=== PATIENT | male | born 1945 | race Caucasian/White ===

== ENCOUNTER 2017-05-20 21:27 | Emergency (ER) | payer MEDICARE, MEDICAID ==
[~2017-05-20] VITALS: Ht 162.6 cm; Wt 54.4 kg
[~2017-05-20 21:27] MED LIST: ADVAIR 100-501 EACH INH; ADVAIRDISKUS; ARTIFICIAL TEA1 EACH OPHTHALMIC; ASPIRIN325 PO; CIPROFLOXACIN500 M1 PO; COREG3.125 MG PO; DUONEB 2.5-0.5 M3 ML INH; FLAGYL500 MG PO; LEVAQUIN 500 M500 M2 PO; LEVAQUIN 500 M500 M4 PO; LIPITOR10 MG PO; MIRALAX17 GM PO; NORCO 5-325 TA1 EACH PO; NORVASC5 MG PO; PREDNISONE 10 M10 MG PO; PRINIVIL20 M1 PO; PROTONIX40 M1 PO; PROVENTIL HFA6.7 G1 INH; PULMICORT0.5 MG/22 INH; SINGULAIR 10 MG10 M1 PO; TYLENOL325 MG PO
[2017-05-20] MEDS ORDERED: SINGULAIR 10 MG10 M1 (21:34)
[2017-05-20] MEDS ORDERED: HYDROCODONE-AP1 EAC6 (21:36)
[2017-05-20] MEDS ORDERED: OXYGEN (21:37)
[2017-05-20 22:12] LABS: ABSOLUTE BASOPHILS 0.1 thou/uL (0.0-0.2); ABSOLUTE EOSINOPHILS 0.7 thou/uL (0.0-0.7); ABSOLUTE LYMPHOCYTES 1.7 thou/uL (0.8-5.3); ABSOLUTE MONOCYTES 0.6 thou/uL (0.0-1.2); ABSOLUTE NEUTROPHILS 4.8 thou/uL (1.6-8.1); BASOPHILS 0.7 %; EOSINOPHILS 8.8 %; HEMOGLOBIN 15.3 gm/dL (14.0-18.0); LYMPHOCYTES 21.3 %; MCH 30.1 pg (26.0-34.0); MCHC 32.6 g/dL (28.0-37.0); MCV 92.4 fL (80.0-100.0); MONOCYTES 8.3 %; MPV 10.4 fl. (7.2-11.1); NUCLEATED RBCS 0 /100WBC; PLATELET COUNT* 172 thou/uL (150-400); POLYS 60.9 %; RBC 5.09 mil/uL (4.50-6.00); RDW-CV 13.7 % (10.5-14.5); WBC 7.8 thou/uL (4.0-11.0)
[2017-05-20 22:29] LABS: ANION GAP 7 mmol/L (7-16); BUN 20 mg/dL (7-18); CALCIUM 10.2 mg/dL (8.5-10.1); CHLORIDE 103 mmol/L (98-107); CO2 30 mmol/L (21-32); CREATININE 1.1 mg/dL (0.6-1.3); GLUCOSE 114 mg/dL (70-99); POTASSIUM 4.2 mmol/L (3.5-5.1); SODIUM 140 mmol/L (136-145)
[2017-05-20 22:39] LABS: ALBUMIN 3.9 g/dL (3.4-5.0); ALKALINE PHOSPHATASE 37 U/L (46-116); NT-PRO BRAIN NAT PEPTIDE 385 pg/mL (<300); SGOT 32 U/L (15-37); SGPT 31 U/L (30-65); TOTAL BILIRUBIN 0.6 mg/dL (<0.1-1.0); TOTAL PROTEIN 7.3 g/dL (6.4-8.2); TROPONIN-I LEVEL <0.06 ng/mL (<0.06)
[2017-05-20] MEDS ORDERED: HYDROCODON-ACE1 EAC5 PO (22:59)
[2017-05-21 00:06] VITALS: BP 159/70
--- NOTE | 2017-05-21 12:41 | EKG ---
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: RG Sterling : 1945 Requested By: Paige Mcleod Order Number: [id number] MD: Abebe Glover Measurements Intervals [employer] Rate: 102 P: 80 GA: 120 QRS: 71 QRSD: 90 T: 71 QT: 353 QTc: 460 Interpretive Statements Sinus tachycardia Probable left atrial enlargement RSR' in V1 or V2, right VCD or RVH Compared to ECG 07/14/2016 13:45:30 Right ventricular hypertrophy now present RSR' in V1 or V2 now present Prolonged QT interval no longer present Electronically Signed On 05-21-2017 12:41:42 CONVEYOR WEIGHER OPERATOR by Abebe Glover [email or web address] <ELECTRONICALLY SIGNED> By: Yordy Glover MD, [facility] 05/21/17 1241 [id number] Yordy Glover MD, [facility] /EPI
== END 2017-05-21 00:08 | disposition home or self-care (01) ==
LOC: M.ERS 21:27
PROVIDERS: Emergency Medicine
DX: J44.1 Chronic obstructive pulmonary disease with (acute) exacerbation (principal); J45.909 Unspecified asthma, uncomplicated; Z98.890 Other specified postprocedural states; Z87.891 Personal history of nicotine dependence

== ENCOUNTER 2018-01-31 11:22 | Inpatient (IN) | payer MEDICARE, MEDICAID ==
[~2018-01-31] VITALS: Ht 160 cm; Wt 51.7 kg
[~2018-01-31 11:22] MED LIST changes: +HYDROCODON-ACE1 EAC5 PO; +HYDROCODONE-AP1 EAC6; +OXYGEN; +SINGULAIR 10 MG10 M1
[2018-01-31] MEDS ORDERED: ANORO ELLIPTA1 EACH INH (11:33)
[2018-01-31 11:51] LABS: ABSOLUTE EOSINOPHILS 0.5 thou/uL (0.0-0.7); ABSOLUTE LYMPHOCYTES 1.4 thou/uL (0.8-5.3); ABSOLUTE MONOCYTES 0.6 thou/uL (0.0-1.2); ABSOLUTE NEUTROPHILS 5.1 thou/uL (1.6-8.1); BASOPHILS 0.6 %; EOSINOPHILS 6.7 %; HEMATOCRIT 46.1 % (42.0-52.0); HEMOGLOBIN 15.2 gm/dL (14.0-18.0); MCH 30.1 pg (26.0-34.0); MCHC 32.9 g/dL (28.0-37.0); MCV 91.4 fL (80.0-100.0); MONOCYTES 8.1 %; MPV 10.9 fl. (7.2-11.1); NUCLEATED RBCS 0 /100WBC; PLATELET COUNT* 203 thou/uL (150-400); POLYS 66.6 %; RBC 5.04 mil/uL (4.50-6.00); RDW-CV 13.8 % (10.5-14.5); WBC 7.7 thou/uL (4.0-11.0)
[2018-01-31 12:00] LABS: CALCIUM 9.7 mg/dL (8.5-10.1); CREATININE 1.3 mg/dL (0.6-1.3); POTASSIUM 3.9 mmol/L (3.5-5.1)
[2018-01-31 12:08] LABS: BE -3.2 mmol/L (-2 to +3); HCO3 22.3 mmol/L (22.0-26.0); PCO2 41.4 mmHg (35.0-45.0); PO2 70.2 mmHg (75.0-100.0); pH 7.349 (7.340-7.450)
[2018-01-31 12:11] LABS: ALBUMIN 4.2 g/dL (3.4-5.0); TOTAL BILIRUBIN 1.1 mg/dL (<0.1-1.0); TOTAL PROTEIN 8.1 g/dL (6.4-8.2)
[2018-01-31 12:13] LABS: APTT 29.2 Seconds (25.0-31.3); PROTIME 10.7 Seconds (9.20-11.50); TROPONIN-I LEVEL 0.62 ng/mL (<0.06)
[2018-01-31 13:30] VITALS: BP 119/65
[2018-01-31 13:45] VITALS: BP 111/57
--- NOTE | 2018-01-31 13:46 | NUR ---
PT TO ROOM FROM ER, APPEARSALERT O X 4, DENIES CHEST PAIN, DENIES SOB AT REST, ON 02 AT 3L PER NC , USES O2 AT HOME AT 3L , MOIST COUGH, DENIES PAIN
[2018-01-31 14:00] VITALS: BP 145/76
--- NOTE | 2018-01-31 17:02 | EKG ---
[place] [address] ELECTROCARDIOGRAM REPORT Name: ORTIZ STAPLES Room: [address] ADM IN .R.#: [id number] Admission: 01/31/18 Attend Phys: Cresencio Barbosa Discharge: Date of : 41 Report #: [id number] THIS REPORT FOR: //name// [facility] ED Test Date: 2018-01-31 Test Time: 11:34:02 Pat Name: ORTIZ STAPLES Department: Room: [facility] Gender: M Glass Bender: : 1945 Requested By: Yasmine Jolly Order Number: [id number] MD: Farrukh Loaiza Measurements Intervals [place] Rate: 99 P: 86 [place]: 120 QRS: 51 QRSD: 89 T: 83 QT: 348 QTc: 447 Interpretive Statements Sinus rhythm artifact noted Compared to ECG 05/20/2017 21:36:30 Sinus tachycardia no longer present Electronically Signed On 01-31-2018 17:02:17 CDT by Farrukh Loaiza [email or web address] <ELECTRONICALLY SIGNED> By: Farrukh Loaiza MD, [facility] 01/31/18 1702 1134 113 Farrukh Loaiza MD, FACC /EPI
[2018-01-31 19:30] VITALS: BP 122/70
[2018-02-01 00:29] VITALS: BP 138/80
[2018-02-01 04:00] VITALS: BP 150/58
--- NOTE | 2018-02-01 04:02 | NUR ---
RECEIVED REPORT AND ASSUMED CARE AT 1900.VSS. CARDIAC MONITORING IN PLACE. PT DENIES ANY COMPLAINTS OF PAIN. ASSESSMENT COMPLETED CHARTED. DISCUSSED PLAN OF CARE WITH PT, VERBALZED UNDERSTANDING. PT UPAD ADAM, ON 3L NC. BED LOCKED IN LOWEST POSITION, CALL LIGHT WITHIN REACH. WILL CONTINUE TO MONITOR
[2018-02-01 04:50] LABS: URINE BILIRUBIN NEGATIVE (Negative); URINE BLOOD NEGATIVE (Negative); URINE CLARITY CLEAR; URINE COLOR YELLOW; URINE GLUCOSE-RANDOM NEGATIVE (Negative); URINE KETONES 1+ (Negative); URINE LEUKOCYTES-REFLEX NEGATIVE (Negative); URINE NITRITE-REFLEX NEGATIVE (Negative); URINE PROTEIN NEGATIVE (Negative); URINE UROBILINOGEN 0.2 E.U./dl (0.2-1.0)
--- NOTE | 2018-02-01 07:20 | NUR ---
BEDSIDE, CHANGE OF SHIFT REPORT GIVEN PATIENT SEEN IN BED ASLEEP ASSUMED PATIENT CARE
[2018-02-01 08:00] VITALS: BP 144/57
[2018-02-01 12:00] VITALS: BP 127/68
--- NOTE | 2018-02-01 12:39 | NUR ---
Pt is A&O. Resides at home with a roommate. Pt is independent with ADLs, able to cook and clean. Pt uses either [employer] bus or his roommate for transportation. Pt also has a strong family support sx. Hx of skilled at [facility]. No hx of HH. Pt wears home o2, provided by [facility]. Pt's goal is to return home at dc, and has dc transportation. If Pt needs a portable tank at ms, CM will contact [facility] to have a tank delivered to Pt's room. [facility]:[phone]
[2018-02-01 16:00] VITALS: BP 141/73
--- NOTE | 2018-02-01 17:15 | 2DMMODE ---
[place] [address] 2 D/M-MODE ECHOCARDIOGRAM Name: ORTIZ STAPLES Room: [address] IN [facility]#: [id number] Admission: 01/31/18 Attend Phys: Norma Pierce Discharge: Date of : 41 Date of Service: 02/01/18 1715 Report #: [id number] THIS REPORT FOR: //name// APPROVED REPORT Study performed: 02/01/2018 14:23:46 EXAM: Comprehensive 2D, Doppler, and color-flow Echocardiogram Patient Location: In-Patient Room #: [facility] Status: routine BSA: 1.68 HR: 82 bpm BP: 144/57 mmHg Rhythm: NSR Other Information Study Quality: Good Indications COPD Elevated Troponin 2D Dimensions IVSd: 9.20 (7-11mm) LVOT Diam: 19.33 (18-24mm) LVDd: 44.03 mm PWd: 9.20 (7-11mm) LVDs: 32.57 (25-40mm) Aortic Root: 27.91 mm Volumes Left Atrial Volume (Systole) LA ESV Index: 21.70 mL/m2 Aortic Valve AoV Peak Semaj.: 1.10 m/s AO Peak Gr.: 4.84 mmHg LVOT Max P.81 mmHg AO Mean Gr.: 2.40 mmHg LVOT Mean P.71 mmHg LVOT Max V: 0.98 m/s AO V2 VTI: 19.38 cm LVOT Mean V: 0.60 m/s CRUZ (VTI): 2.67 cm2 LVOT V1 VTI: 17.61 cm Mitral Valve E/A Ratio: 0.73 MV Decel. Time: 269.35 [place] [address] 2 D/M-MODE ECHOCARDIOGRAM Name: ORTIZ STAPLES Room: [address] IN .R.#: [id number] Admission: 01/31/18 Attend Phys: Norma Pierce Discharge: Date of : 41 Date of Service: 02/01/18 1715 Report #: [id number] MV E Max Semaj.: 0.55 m/s MV PHT: 78.11 ms MVA (PHT): 2.82 cm2 TDI E/Lateral E': 6.11 E/Medial E': 9.17 Medial E' Semaj.: 0.06 m/s Lateral E' Semaj.: 0.09 m/s Pulmonary Valve PV Peak Semaj.: 0.86 m/s PV Peak Gr.: 2.98 mmHg Tricuspid Valve RAP Estimate: 5.00 mmHg TR Peak Gr.: 31.61 mmHg RVSP: 36.00 mmHg PA Pressure: 36.00 mmHg Left Ventricle The left ventricle is normal size. Regional wall motion abnormalities are noted.inferolateral wall is moderately hypokinetic. There is normal left ventricular wall thickness. Left ventricular systolic function is normal. The left ventricular ejection fraction is within the normal range. LVEF is 50%. Grade I - abnormal relaxation pattern. Right Ventricle The right ventricle is normal size. The right ventricular systolic function is normal. Atria The left atrium size is normal. The right atrium size is normal. Aortic Valve The aortic valve is normal in structure. No aortic regurgitation is present. There is no aortic valvular stenosis. Mitral Valve The mitral valve is normal in structure. There is no mitral valve regurgitation noted. No evidence of mitral valve stenosis. Tricuspid Valve The tricuspid valve is normal in structure. Trace tricuspid regurgitation. Mild pulmonary hypertension[place] [address] 2 D/M-MODE ECHOCARDIOGRAM Name: ORTIZ STAPLES Room: [address]#: [id number] Admission: 01/31/18 Attend Phys: Norma Pierce Discharge: Date of : 41 Date of Service: 02/01/18 1715 Report #: [id number] The pulmonary valve is normal in structure. There is no pulmonic valvular regurgitation. Great Vessels The aortic root is normal in size. IVC is normal in size and collapses >50% with inspiration. Pericardium There is no pericardial effusion. <Conclusion> LVEF is 50%. Regional wall motion abnormalities are noted.inferolateral wall is moderately hypokinetic. Grade I - abnormal relaxation pattern. There is no aortic valvular stenosis. No aortic regurgitation is present. Trace tricuspid regurgitation. Mild pulmonary hypertension. There is no mitral valve regurgitation noted. No evidence of mitral valve stenosis. No evidence of mitral valve stenosis. <ELECTRONICALLY SIGNED> By: Samuel Morris MD, FACC 02/01/181714 14 14 Samuel Morris MD, FACC /INF
[2018-02-02] VITALS: BP 126/61
[2018-02-02 04:00] VITALS: BP 144/58
--- NOTE | 2018-02-02 05:14 | NUR ---
ASSUMED CARE OF PT AT 1930. NEWS REEL CAMERAMAN IN PLACE. NO COMPLAINTS OF PAIN. DISCUSSED PLAN OF CARE FOR THE EVENING. PT VERBALIZED UNDERSTANDING. UP AD ADAM/ ON NC 3L AND TOLERATING WELL. BED LOCKED IN LOWEST POSITION AN CALL LIGHT WITHING REACH. HOURLY ROUNDING COMPLETED. ALL NEEDS MET. NURSING WILL CONTINUE TO MONITOR.
--- NOTE | 2018-02-02 07:30 | NUR ---
CHANGE OF SHIFT, BEDSIDE REPORT GIVEN PATIENT SEEN IN BED ASLEEP ASSUMED Patient care
[2018-02-02 08:00] VITALS: BP 123/57
[2018-02-02 11:33] VITALS: BP 118/48
--- NOTE | 2018-02-02 12:46 | CON ---
[address] [address] CONSULTATION Name: ORTIZ STAPLES Room: [address] IN M.R.#: [id number] Admission: 01/31/18 Attend Phys: Cresencio Barbosa Discharge: Date of : 41 Report #: [id number] THIS REPORT FOR: //name// CC: Norma Martin DATE OF SERVICE: 02/01/2018 REQUESTING PHYSICIAN: Dr. Pierce. REASON FOR CONSULTATION: Shortness of breath, COPD exacerbation. DISCUSSION: The patient is a 72-year-old man who has a history of COPD, presumed to be severe. I do not have any spirometry or PFTs on him. He is a former smoker. He states he quit about 10 years ago. He does not see a maintenance custodian in the office. He has O2, though has not been steroid dependent. He has required intubation in the past for his COPD. By about 4 or 5 days ago, he began having more trouble with his breathing. He does believe it may have been related to a pot becoming too hot with some oil burning at home. He had fairly strong fumes and some smoke in the house. Typically, he has a cough with clear to white sputum. It has become darker. However, he denies any fevers at home. He has felt much more short of breath. He has also had some chest tightness. He denies any actual chest pain. Denies any hemoptysis. Normally at home, he does do Anoro daily (however, he admits some days he forgets), nebulizer with DuoNeb he does up to 4 times a day, montelukast 10 mg a day and he has albuterol inhaler. His regular regimen was not helping. He was seen in the ED yesterday. He was bronchospastic. He did not have any significant hypercapnia on his blood gases. His troponins have elevated. He has already been seen by Cardiology. They have recommended a cardiac catheterization, but he has declined. He has been afebrile. He notes overall his breathing is better today relative to what it was. However, he still gets fairly winded when he walks to the bathroom. He still has some of the chest tightness. Denies any palpitations. He has not had any associated palpitations. PAST MEDICAL HISTORY: Remarkable for the COPD as noted. Has been O2 dependent. He is not on any type of BiPAP or Trilogy at home. He has a history of hepatitis C. HOME MEDICATIONS: Have been the Anoro as noted, DuoNeb, montelukast, aspirin 31/10. He also notes he intermittently uses some [place]uss[place] [address] CONSULTATION Name: ORTIZ STAPLES Room: [address] ADM IN .R.#: [id number] Admission: 01/31/18 Attend Phys: Cresencio Barbosa Discharge: Date of : 41 Report #: [id number] to him by Dr. Martin. He has had no recent steroids. SOCIAL HISTORY: Former smoker, states he quit 10 years ago. 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 May have had asbestos exposure years ago. REVIEW OF SYSTEMS: A 12-point ROS was done. Note positives above. He notes he has had a good appetite. No difficulty swallowing. No reflux type symptoms. No hematemesis, no blood in the stools. Denies any hemoptysis. He will get short of breath with exertion. He notes he wheezes on a daily basis. However, the symptoms he has had over the last 4-5 days has been much worse. The sputum has darkened up. No syncopal episodes. PHYSICAL EXAMINATION: GENERAL APPEARANCE: A male, looks his stated age, if not older. Has O2 running via nasal cannula. Looks fairly comfortable in bed. HEENT: Head is normocephalic and atraumatic. Sclerae nonicteric. Mucous membranes little dry. NECK: Negative for adenopathy. Neck muscles well developed. No JVD is noted. HEART: Regular rate. Had grade 1/6 systolic murmur. LUNGS: Show breath sounds to be diminished with a prolonged expiratory phase. Inspiratory and expiratory wheezes heard bilaterally. Excursion is equal. No CVA tenderness. ABDOMEN: Soft, without appreciable hepatosplenomegaly. There is no guarding or rebound tenderness noted. EXTREMITIES: Thin, some muscle wasting. No edema is noted. No calf tenderness. NEUROLOGIC: He is alert and oriented x 3. LABORATORY AND X-RAY FINDINGS: Arterial blood gases done yesterday. He had a pH of 7.35, pCO2 of 41, pO2 of 70, bicarb of 22 with a saturation of 93%. On his chemistry, BUN is 12, creatinine 1.3, potassium is 3.9. Lactic acid 1.6. Peak troponin last night was up to 1.05. White blood cell count 7700, hemoglobin 15.2, hematocrit 46.1, platelets are normal. Coag studies were unremarkable. A chest x-ray was done. It was a portable study done. In the ED, no acute findings were noted. Does have changes consistent with COPD in the form of air trapping. He did have an echocardiogram in 2017 when he was here with respiratory failure on a ventilator. Echo done at that time did reveal EF of only 35-40%. He also had grade 1 diastolic dysfunction. RV was normal. No significant valvular disease. IMPRESSION: 1. Chronic obstructive pulmonary disease exacerbation. He is actively bronchospastic on exam. May have been triggered by some of the fumes at home from oil getting [place] [address] CONSULTATION Name: ORTIZ STAPLES Room: [address] IN [facility].#: [id number] Admission: 01/31/18 Attend Phys: Cresencio Barbosa Discharge: Date of : 41 Report #: [id number] 2. Non-ST elevation myocardial infarction. The patient, however, is having significant denial and the possibility he could have a heart issue. He is emphatic that "my heart is fine. It is a strong heart after my grandmother's heart." 3. Past history of tobacco abuse. RECOMMENDATIONS: 1. Change DuoNeb to every 4 hours. 2. Also add Brovana since he is on a long-acting bronchodilator at home. 3. Check sputum for cultures. 4. Continue steroids. 5. Note he is currently on 2 anticholinergics at home. There is really no indication for that and could increase side effects related to that. When discharged, suggest changing his DuoNeb to straight albuterol. 6. Did recommend that he be more open to discussing his cardiac status with the manager convention. <ELECTRONICALLY SIGNED> By: Autumn Myers MD 02/02/18 1246 1017 [id number] Myers MD /nt
[2018-02-02 15:34] VITALS: BP 117/57
[2018-02-02 19:45] VITALS: BP 127/42
[2018-02-03 00:36] VITALS: BP 154/65
[2018-02-03 04:23] VITALS: BP 142/61
--- NOTE | 2018-02-03 04:46 | NUR ---
PT AAOX4 RESP REG AND UNLABORED SKIN W/D NO ACUTE DISTRESS NOTED. PT STATES HE IS SUPPOSE TO GO HOME TODAY AND HE IS READY. TAXICAB STARTER INTACT WITH ALARMS SET. O2 3L BNC INTACT. VSS AND NO ACUTE CHANGES DURING SHIFT WILL CONTINUE TO MONITOR
[2018-02-03 05:15] LABS: HEMATOCRIT 45.1 % (42.0-52.0); HEMOGLOBIN 14.8 gm/dL (14.0-18.0); MCHC 32.8 g/dL (28.0-37.0); MCV 91.5 fL (80.0-100.0); MPV 11.8 fl. (7.2-11.1); NUCLEATED RBCS 0 /100WBC; PLATELET COUNT* 154 thou/uL (150-400); RBC 4.93 mil/uL (4.50-6.00); WBC 8.9 thou/uL (4.0-11.0)
[2018-02-03 05:16] LABS: CALCIUM 9.1 mg/dL (8.5-10.1); POTASSIUM 5.3 mmol/L (3.5-5.1)
[2018-02-03 06:09] LABS: ABSOLUTE LYMPHOCYTES 0.3 thou/uL (0.8-5.3); ABSOLUTE MONOCYTES 0.2 thou/uL (0.0-1.2); ABSOLUTE NEUTROPHILS 8.5 thou/uL (1.6-8.1)
[2018-02-03 06:10] LABS: PLATELET ESTIMATE ADEQUATE
[2018-02-03 08:00] VITALS: BP 130/58
--- NOTE | 2018-02-03 08:00 | NUR ---
ASSUMED CARE OF PT ASSESSED AND DOCUMENTED. PT IS ON THE CARDIAC MONITER TRACING SB HR 58. PT IS A&O WITH NO C/O PAIN. PT IS ON 3L OF 02. BED IS IN LOW POSTION CALL LIGHT IS IN REACH. WM.
--- NOTE | 2018-02-03 11:23 | NUR ---
DISCUSSED WITH DR TOM, ORDERS FOR DC HOME WITH HH. MET WITH PT, HE DECLINES HH. STATES 'I'LL BE FINE AT HOME.' HAS O2 AND WILL ARRANGE HIS OWN RIDE HOME. MADE AWARE
[2018-02-03] MEDS ORDERED: TOPROL XL50 MG PO (11:25)
[2018-02-03] MEDS ORDERED: PLAVIX 75 MG TA75 M1 PO (11:25)
[2018-02-03] MEDS ORDERED: ASPIR 8181 MG PO (11:25)
[2018-02-03] MEDS ORDERED: LEVAQUIN 750 M750 MG PO (11:26)
[2018-02-03] MEDS ORDERED: PREDNISONE 10 M10 MG PO (11:27)
[2018-02-03] MEDS ORDERED: LIPITOR 20 MG T20 M1 PO (11:35)
[2018-02-03 11:49] VITALS: BP 130/58
[2018-02-03 12:23] VITALS: BP 137/49
--- NOTE | 2018-02-03 13:52 | NUR ---
PT D/C'D TO HOME. HE REFUSES HOME HEALTH. EDUCATION GIVEN RE FOLLOW-UPS, MEDICATIONS, AND DR ORDERS. IV AND CARDIAC MONITER D/C'D. SCRIPTS GIVEN. ALL BELONGINGS PACKED UP AND LEFT WITH PT ACCOMPANIED BY STAFF.
--- NOTE | 2018-02-05 09:11 | CON ---
[address] [address] CONSULTATION Name: FISH STAPLES Room: [address] IN .R.#: [id number] Admission: 01/31/18 Attend Phys: Cresencio Barbosa Discharge: 02/03/18 Date of : 41 Report #: [id number] THIS REPORT FOR: //name// CC: Norma Martin DATE OF SERVICE: 02/01/2018 PRIMARY CARE PHYSICIAN: Joseph Martin DO. REQUESTING PHYSICIAN: Randolph Reddy M.D. REASON FOR CONSULTATION: Abnormal troponin and shortness of breath. HISTORY OF PRESENT ILLNESS: The patient is a 72-year-old with a history of significant COPD, presented with 5 days of increasing shortness of breath, but also had chest pressure. It was off and on. It is not radiating. It is centrally located. It is not sharp in nature, rather more of a squeezing. His presenting ECG was normal, but her serial cardiac troponin levels have been abnormal. This morning, he is chest pain free. He has a known history of remote cardiac catheterization, but has not had any cardiovascular followup. He also has a history of cardiomyopathy when he presented with acute respiratory failure and was intubated at this institution. After that apparently, he did not have cardiovascular followup. On telemetry, he remained in a sinus rhythm with stable telemetry. On 2-3 liters of oxygen, his O2 sat is 96%, but he is clearly dyspneic with significant conversation. PAST MEDICAL HISTORY: Obstructive lung disease. He is a remote smoker. As mentioned above, his echocardiogram at a hospitalization in 2017 revealed an ejection fraction of 35-40% without focal wall motion abnormalities. I did not see a Cardiology consult from that visit. He does not carry the diagnosis of hypertension and diabetes. His lipid status is not known. SOCIAL HISTORY: He quit smoking. He does not drink. FAMILY HISTORY: Positive for heart disease. Father from an NH at age 71. He has a living sister without heart disease. CURRENT MEDICATIONS: As follows: Levaquin, guaifenesin, albuterol, Atrovent, Solu-Medrol 62.5 mg, ceftriaxone. ALLERGIES: He has no known drug allergies. [place] [address] CONSULTATION Name: FISH STAPLES Room: [address]#: [id number] Admission: 01/31/18 Attend Phys: Cresencio Barbosa Discharge: 02/03/18 Date of : 41 Report #: [id number] REVIEW OF SYSTEMS: GASTROINTESTINAL: No abdominal pain or nausea. No history of hematemesis or melena. GENITOURINARY: No dysuria or hematuria. NEUROLOGIC: Denies headaches, blurry vision, or slurred speech. No seizures. HEMATOLOGIC: No history of anemia. RENAL: No history of kidney failure. CARDIOVASCULAR: Positive chest pain. Positive shortness of breath. No palpitations. No edema, no orthopnea. No weight gain. GENERAL: No fevers or chills. SKIN: No rashes. PULMONARY: Positive shortness of breath, positive cough, positive orthopnea, positive PND. PHYSICAL EXAMINATION: VITAL SIGNS: Blood pressure is 144/57, respiratory rate 20, pulse is 97. GENERAL: Thin, adult male. He is alert, oriented, in no apparent distress, answering questions appropriately. HEENT: Eyes: EOMs intact. No facial asymmetry. NECK: Supple. No jugular venous distention. Upstrokes are normal. CARDIOVASCULAR: Regular. I could not hear a murmur or S3. LUNGS: Diminished breath sounds bilaterally with expiratory wheezes. ABDOMEN: Nontender. EXTREMITIES: No peripheral venous. SKIN: There is no cyanosis. NEUROLOGIC: No focal deficits. PSYCHIATRIC: The patient has appropriate mood and affect. LABORATORY DATA: Electrocardiogram shows sinus rhythm, pulmonary disease pattern with normal ST segments. Troponin level this morning is 0.99. Last night, it peaked at 1.05. On initial presentation, it was 0.62. BNP 738. AST is 30, ALT is 31, creatinine is 1.3. Sodium is 138, potassium 3.9, chloride is 101, CO2 is 28. INR is 1.0. Chest x-ray shows air trapping without acute pulmonary process. IMPRESSION: 1. Unstable angina. The patient's elevated cardiac troponin levels is concerning as is his history of left ventricular dysfunction. He did not have apparently a cardiovascular workup at the time of his previous hospitalization when he was quite ill with respiratory failure, requiring mechanical respiration. I discussed with the patient his concerning findings and recommended evaluation with heart catheterization and at this time, the patient after realizing the risks and benefits including the significant mortality associated when untreated cardiovascular event, the patient refuses cardiac catheterization. At this point in time, I would recommend conservative medical therapy. We will check an echocardiogram, start beta blockers, selective [address] [place] [address] CONSULTATION Name: FISH STAPLES Room: [facility] IN M.R.#: [id number] Admission: 01/31/18 Attend Phys: Cresencio Barbosa Discharge: 02/03/18 Date of : 41 Report #: [id number] therapy and aspirin and Plavix. I would survey lipids. 2. Chronic obstructive pulmonary disease exacerbation. I will continue with aggressive medical therapy. 3. Respiratory insufficiency, presumably this is mostly respiratory. He does have only a mildly elevated BNP level. 4. Tobacco use prior. <ELECTRONICALLY SIGNED> By: Fish Javier MD, FACC 02/05/18 0911 0934 [id number] Morris MD, FACC /nt
== END 2018-02-03 13:51 | disposition home or self-care (01) | DRG 280 ==
LOC: M.ERS 11:22 → M.TBA-ER 12:10 → M.ERS 12:10 → M.TBA-ER 12:15 → M.2W 12:15
PROVIDERS: Family Medicine; Nurse Practitioner Family; ADMIT Internal Medicine
DX: I21.A1 Myocardial infarction type 2 (principal); J96.21 Acute and chronic respiratory failure with hypoxia; J44.1 Chronic obstructive pulmonary disease with (acute) exacerbation; I42.9 Cardiomyopathy, unspecified; E44.0 Moderate protein-calorie malnutrition; I20.0 Unstable angina; J45.909 Unspecified asthma, uncomplicated; Z87.891 Personal history of nicotine dependence; Z82.49 Family history of ischemic heart disease and other diseases of the circulatory system; Z86.19 Personal history of other infectious and parasitic diseases; Z83.6 Family history of other diseases of the respiratory system; Z68.20 Body mass index [BMI] 20.0-20.9, adult; Z79.899 Other long term (current) drug therapy

== ENCOUNTER 2018-03-30 01:53 | Inpatient (IN) | payer MEDICARE, MEDICAID ==
[2018-03-30] VITALS (13 sets, daily range): BP systolic 104–192; BP diastolic 52–103
[~2018-03-30] VITALS: Ht 165.1 cm; Wt 53.1 kg
[~2018-03-30 01:53] MED LIST changes: +ANORO ELLIPTA1 EACH INH; +ASPIR 8181 MG PO; +LEVAQUIN 750 M750 MG PO; +LIPITOR 20 MG T20 M1 PO; +PLAVIX 75 MG TA75 M1 PO; -SINGULAIR 10 MG10 M1; +TOPROL XL50 MG PO
[2018-03-30 02:07] LABS: BE -5.3 mmol/L (-2 to +3); HCO3 25.4 mmol/L (22.0-26.0)
[2018-03-30 02:10] LABS: pH 7.147 (7.340-7.450)
[2018-03-30 02:11] LABS: PO2 257.8 mmHg (75.0-100.0)
[2018-03-30 02:27] LABS: HEMATOCRIT 41.9 % (42.0-52.0); HEMOGLOBIN 13.9 gm/dL (14.0-18.0); MCH 30.6 pg (26.0-34.0); MCHC 33.2 g/dL (28.0-37.0); MCV 92.2 fL (80.0-100.0); MPV 10.9 fl. (7.2-11.1); NUCLEATED RBCS 0 /100WBC; PLATELET COUNT* 208 thou/uL (150-400); RBC 4.55 mil/uL (4.50-6.00); RDW-CV 14.2 % (10.5-14.5); WBC 8.8 thou/uL (4.0-11.0)
[2018-03-30 02:31] LABS: ANION GAP 10 mmol/L (7-16); BUN 13 mg/dL (7-18); CALCIUM 9.7 mg/dL (8.5-10.1); CHLORIDE 103 mmol/L (98-107); CO2 27 mmol/L (21-32); CREATININE 1.5 mg/dL (0.6-1.3); GLUCOSE 164 mg/dL (70-99); POTASSIUM 4.8 mmol/L (3.5-5.1); SODIUM 140 mmol/L (136-145)
[2018-03-30 02:32] LABS: PROTIME 10.7 Seconds (9.20-11.50)
[2018-03-30 02:42] LABS: ALBUMIN 3.9 g/dL (3.4-5.0); ALKALINE PHOSPHATASE 38 U/L (46-116); LIPASE 79 U/L (73-393); NT-PRO BRAIN NAT PEPTIDE 515 pg/mL (<300); SGOT 26 U/L (15-37); SGPT 31 U/L (30-65); TOTAL PROTEIN 7.3 g/dL (6.4-8.2); TROPONIN-I LEVEL <0.06 ng/mL (<0.06)
[2018-03-30 02:45] LABS: ABSOLUTE EOSINOPHILS 1.1 thou/uL (0.0-0.7); ABSOLUTE LYMPHOCYTES 4.2 thou/uL (0.8-5.3); ABSOLUTE MONOCYTES 0.6 thou/uL (0.0-1.2); ABSOLUTE NEUTROPHILS 2.8 thou/uL (1.6-8.1); OVALOCYTES 1+; PLATELET ESTIMATE ADEQUATE
[2018-03-30 02:46] LABS: POIKILOCYTOSIS Occasional
[2018-03-30 03:09] LABS: HCO3 27.9 mmol/L (22.0-26.0); pH 7.335 (7.340-7.450)
[2018-03-30 03:10] LABS: PCO2 53.5 mmHg (35.0-45.0)
--- NOTE | 2018-03-30 07:44 | NUR ---
RECEIVED REPORT AND ASSUMED CARE AT 0415. PT TRANSPORTED FROM ED TO ROOM 207. VSS. CARDIAC MONITORING IN PLACE. PT DENIES ANY COMPLAINTS OF PAIN. ASSESSMENT COMPLETED CHARTED. DISCUSSED PLAN OF CARE WITH PT, VERBALIZED UNDERSTANDING. BED ALARM ON, BED LOCKED IN LOWEST POSITION, CALL LIGHT WITHIN REACH. PT ON BIPAP. WENT OVER HOME MEDICATION, PT REPORTED BLU TAKING HIS SINGULAIR AND HIS BREATHING TX. BUT HIS OTHER BP, CHOLESTEROL, AND BLOOD THINNERS HE DOES NOT. PT STATED HE IS SUPPOSED TO TAKE THEM, BUT HE STOPPED. HOURLY ROUNDING COMPLETED AND ALL NEEDS MET. NURSING WILL CONTINUE TO MONITOR
--- NOTE | 2018-03-30 10:43 | NUR ---
Nutrition: Pt admitted with SOA, sepsis 2/2 PNA. No tcurrently on sepsis protocol. Nsg risk 2 points. Per [facility], pt weighed 110# in 2017, currently 115# - no significant wt changes. H/o COPD, smoking, CAD. No lipid panel recorded in [facility]. Regular diet ordered. Albumin 3.9. Hopeful for good po intake. Low risk.
--- NOTE | 2018-03-30 11:18 | NUR ---
AFTER ASSESSING PT WITH DR. CHEN AT 1100 THIS AM WHILE PT WAS ON 3LNC. PT BEGAN COUGHING BECAME SOB AND HAD RAPID BREATHING. PLACE PT BACK ON BIPAP AND INCREASE FIO2 TO 100 PERCENT. CALLED RAPID RESPONSE AND DR. GIVENS AND RT CAME TO ROOM. PT GIVEN BREATHING TREATMENT AND WILL BE TRANSFERRED TO ROOM 1 IN THE ICU. PT WAS WEANED OFF BIPAP THIS AM AROUND [address] DECKER INSTRUCTION AND TOLERATED 3LNC TILL THIS TIME. WILL CONTINUE TO ASSESS.
[2018-03-30 12:11] LABS: BE -1.7 mmol/L (-2 to +3); HCO3 23.9 mmol/L (22.0-26.0); PCO2 43.2 mmHg (35.0-45.0)
[2018-03-30 12:13] LABS: PO2 187.3 mmHg (75.0-100.0)
--- NOTE | 2018-03-30 13:17 | CON ---
[address] [address] CONSULTATION Name: ORTIZ STAPLES Room: [address] IN M.R.#: [id number] Admission: 03/30/18 Attend Phys: Nan Herron MD Discharge: Date of : 41 Report #: [id number] THIS REPORT FOR: //name// CC: Yves Herron DATE OF SERVICE: 03/30/2018 PULMONARY CONSULTATION ATTENDING PHYSICIAN: Yves Trujillo MD LOCATION: The patient is located in room 207. He may be transferred to the Intensive Care Unit bed 1, so we will follow up on that here in the next hour or two. INDICATION FOR CONSULTATION: Acute respiratory failure, hypercarbic respiratory failure along with bronchospasm, severe COPD. HISTORY OF PRESENT ILLNESS: The patient is a 72-year-old male, remote smoker, with severe COPD. He has been oxygen dependent for the last 2-3 years at 3 liters. He has been on frequent tapers of steroids. He was just in the hospital late January and early February here at [place] and he was not on the ventilator, he was on BiPAP for a couple of nights. He got off the BiPAP. He was not using that at home. For the past 5 or 7 days, he has had increasing cough with some wheezing, some scant gilbert sputum without any fever, chills or sweats. He was much more short of breath. He denies any chest pain or peripheral edema. He came into the hospital. In the Emergency Room, late last night, he had hypercarbic respiratory failure, placed on BiPAP at 35% initially he was 12/6, he is now 16/6 with a backup rate of 16 and clinically tolerating that better. He was short of breath walking across the floor at his home at this time. He states his appetite stable. Denies any esophageal reflux. He denies much sinus drainage. PAST MEDICAL HISTORY: Again he has a history of severe COPD, oxygen dependent and also has some mild hyperlipidemia, has an ischemic cardiomyopathy and coronary artery disease with an EF of 30% in the past. He was intermittently on Lasix and diuretics. PAST SURGICAL HISTORY: He has had a cardiac cath 3 years ago with no intervention. He has had a tonsillectomy. ALLERGIES: He [place] [address] CONSULTATION Name: ORTIZ STAPLES Room: [address]#: [id number] Admission: 03/30/18 Attend Phys: Nan Herron MD Discharge: Date of : 41 Report #: [id number] OUTPATIENT MEDICATIONS: Included DuoNeb nebulizers 4 times a day. His last prednisone taper was on 02/03/2018 and he had finished up the prednisone taper probably in mid February. He only took it for about a week after he went home. Also, on atorvastatin (Lipitor) 20 mg at bedtime, metoprolol 50 mg once daily, clopidogrel (Plavix) 75 mg daily for coronary artery disease and stents. He is currently on DuoNeb q.4 hours, Solu-Medrol 62.5 mg IV q. 8 hours and he was on cefdinir 300 mg b.i.d., he is now on azithromycin 500 mg daily and back on cefdinir, inhaled budesonide 0.5 mg b.i.d. and he has had one-time dose of Solu-Medrol 125 mg 1 time push here about an hour or two ago, montelukast 10 mg daily, aspirin 81 mg daily, hydrocodone 5 mg p.r.n. The Solu-Medrol dose is scheduled at 62.5 mg IV q. 8 hours routine, began oxygen at 3 liters and then BiPAP at night. FAMILY HISTORY: Negative for premature pulmonary disease, but has had a history of coronary artery disease in the family. SOCIAL HISTORY: He is , former smoker and that was a pack a day, has about 50-60 pack year history of smoking, states he quit 2-3 years ago. He only drinks socially alcohol on special occasions, 1 drink every couple of months or so. Denies any illicit drug use. REVIEW OF SYSTEMS: A 14-point review of systems reviewed and negative except for pertinent positives noted in HPI. As of note, he was on the ventilator in 07/2016. It appears I saw him either on the ventilator or right after he got off the ventilator, he was on for 5-7 days. He states he did not want a tracheostomy tube or a PEG tube, but he did want the ventilator again if they would occur again; the only time I have known him to be on the ventilator. PHYSICAL EXAMINATION: GENERAL: This is a 72-year-old male in mild to moderate distress. He can talk to me in full sentences. VITAL SIGNS: Blood pressure is 114/70, heart rate is 96, respirations are 20-24, and slightly labored. Some use of accessory muscles. He is talking to me again in full sentences on 3 liters, saturation was 94%, temperature is 36.5 degrees. He is 5 feet 7 inches tall, weight ____ pounds, BMI is ____. HEENT: Unremarkable. Mucous membranes are moist. NECK: No increase in jugular venous pressure. No cervical or supraclavicular adenopathy is noted on exam. Sternocleidomastoid muscles are hypertrophied probably related to COPD. CHEST: Shows markedly diminished breath sounds with prolonged expiratory phase and expiratory rhonchi. He is hyperinflated. Diaphragms are flattened on exam and some use of accessory muscles. CARDIOVASCULAR: Shows diminished heart tones, regular rate and rhythm. Heart rate is 96 without murmur, gallop or rub. ABDOMEN: Soft, without masses or megaly. EXTREMITIES: Without cyanosis, clubbing or edema. Peripheral pulses 2+. [place] [address] CONSULTATION Name: ORTIZ STAPLES Room: [address] IN [facility]#: [id number] Admission: 03/30/18 Attend Phys: Nan Herron MD Discharge: Date of : 41 Report #: [id number] NEUROLOGIC: He can move all fours to commands. Shortly after I left the room, there was a red team call and the patient needed a stat breathing treatment and then BiPAP at 60%, I of 16, E of 6 with a backup rate of 16. Blood gases will be obtained then and that the patient may be transferred to the ICU. LABORATORY DATA: ABGs as of early this morning, initially when he came into the hospital around 2:00 a.m. on 100% BiPAP showed a pO2 of 257, pH 7.14, pCO2 of 75, bicarbonate 24, sats 98%. Carboxyhemoglobin is only 0.3. Repeat this morning at about 3:00 a.m. on the BiPAP again 30% with 03/15 and a backup rate of 16 showed a pO2 of 56, a pH 7.33, pCO2 was 55. Chest x-ray shows COPD and hyperinflation. I do not have any PFTs on the patient. By history, his echocardiogram from a year ago showed an EF of 30%, not known where they had pulmonary artery hypertension or not. EKG showed no changes and just a sinus tachycardia with no acute changes. IMPRESSION: 1. Acute hypercarbic respiratory failure related to severe chronic obstructive pulmonary disease. 2. Acute bronchitis. 3. Severe chronic obstructive pulmonary disease, oxygen dependent, becoming every other day steroid dependent. PLAN: We will move him to the ICU, may be just 12 or 24 hours there and try little BiPAP and see if that does not get him over the hump. Continue oral meds and bronchodilators. He is currently on antibiotics. We will see how that goes. I think the patient needs prednisone 10 mg every other day, Monday, Monday and Monday. When he is off the steroid taper after he gets home, will resume montelukast and then also may be some Daliresp also in the morning. Also we can do for an oral bronchodilator to help this man out. Pulmonary rehab might be a consideration as an outpatient and we will see if we get some PFTs on him and baseline ABGs on 3 liters when he is stable. He was to follow up with Dr. Martin. Again, he wishes to be a full code blue at this time, but he does not want a tracheostomy tube or PEG tube. May need to readdress that again, make sure he has a durable power of face and fill packer. <ELECTRONICALLY SIGNED> By: Darren Rios MD 03/30/18 1317 1150 [id number] Rios MD /nt
--- NOTE | 2018-03-30 14:26 | NUR ---
PATIENT TRANSFERED FROM [facility] FOR SOB ON BIPAP. UPON ARRIVING, PATIENT ON 40% FIO2. PATIENT WAS ASKING NURSE TO REMOVE BIPAP. PLACED ON HOME AMOUNT OF 3L NC WITH SAT OF 98%. PATIENT STARTED ON ALBUTEROL TAB FOR BRONCHOSPASMS. PATIENT DENIES PAIN OR OTHER NEEDS AT THIS TIME.
--- NOTE | 2018-03-30 14:59 | EKG ---
[place] [address] ELECTROCARDIOGRAM REPORT Name: ORTIZ STAPLES Room: [address] ADM IN M.R.#: [id number] Admission: 03/30/18 Attend Phys: Nan Herron MD Discharge: Date of : 41 Report #: [id number] THIS REPORT FOR: //name// [facility] ED Test Date: 2018-03-30 Test Time: 02:22:03 Pat Name: ORTIZ STAPLES Department: Room: [facility] Gender: M Psychology Clinician: E : 1945 Requested By: Farrukh Martin Order Number: [id number] MD: Ritchie Aceves Measurements Intervals [place] Rate: 100 P: 98 AR: 124 QRS: 30 QRSD: 83 T: 56 QT: 354 QTc: 457 Interpretive Statements Sinus tachycardia Atrial premature complexes Consider anterior infarct Compared to ECG 01/31/2018 11:34:02 Atrial premature complex(es) now present Myocardial infarct finding now present Sinus rate has increased Electronically Signed On 03-30-2018 14:59:36 [employer] by Ritchie Aceves [email or web address] <ELECTRONICALLY SIGNED> By: Ritchie Aceves MD, [facility] 03/30/18 1459 1 1 Ritchie Aceves MD, [facility] /EPI
--- NOTE | 2018-03-30 18:12 | NUR ---
SINCE TRANSFER TO ICU, NO ACUTE CHANGES. PATIENT HAS REMAINED ON 3L NC WITH O2 SAT GREATER THAN 90%. AOX4. DENIES PAIN. GOOD APPETITE. DENIES FURTHER NEEDS FROM NURSING STAFF.
--- NOTE | 2018-03-31 00:10 | NUR ---
RECEIVED REPORT AND PT TRANSFERRED FROM ICU PER W/C WITH OXYGEN. PT AMBULATING AROUND BED ARRANGING BELONGINGS, O2 ON AT 3L/NC. BUT SOB. ENCOURAGED TO REST AND EASE RESP. TELEMETRY APPLIED SHOWING SR. WILL CONT TO MONITOR AND ASSIST NEEDED.
[2018-03-31 00:17] VITALS: BP 137/64
[2018-03-31 04:00] VITALS: BP 136/62
[2018-03-31 05:26] LABS: HEMATOCRIT 43.9 % (42.0-52.0); HEMOGLOBIN 14.9 gm/dL (14.0-18.0); MCHC 33.9 g/dL (28.0-37.0); MCV 91.4 fL (80.0-100.0); MPV 11.4 fl. (7.2-11.1); RBC 4.8 mil/uL (4.50-6.00); WBC 7.8 thou/uL (4.0-11.0)
[2018-03-31 05:41] LABS: CALCIUM 9.9 mg/dL (8.5-10.1); MAGNESIUM 1.7 mg/dL (1.8-2.4); POTASSIUM 4.2 mmol/L (3.5-5.1)
--- NOTE | 2018-03-31 06:46 | NUR ---
SLEPT WELL TONIGHT. O2 REMAINS ON AT 3L/NC. GAIT STEADY TO AND FROM BR. SOB WITH ACTIVITY. TELEMETRY CONT TO SHOW SR. NO CHANGE IN ASSESSMENT. HS GOALS OF REST AND SAFETY ACHIEVED. HOURLY ROUNDING OBSERVED.
[2018-03-31 08:00] VITALS: BP 123/60
[2018-03-31 12:00] VITALS: BP 129/78
[2018-03-31 16:00] VITALS: BP 155/68
--- NOTE | 2018-03-31 18:14 | NUR ---
PT WITHOUT C/O TODAY. MODERATE SOA WITH ACTIVITY. RESPIRATIONS EVEN AND LABORED AT REST, PURSED LIPPED BREATHING. LUNGS WITH EXPIRATORY WHEEZES THROUGOUT. PT IV INFILTRATED WITH ANTIBIOTIC, REMOVED INTACT. AREA SLIGHTLY SWOLLEN, NO REDNESS OR TENDERNESS. PT UP TO BATHROOM INDEPENDENTLY. PT ABLE TO MAKE NEEDS KNOWN, CALL LIGHT IN REACH
[2018-03-31 20:00] VITALS: BP 123/61
[2018-04-01] VITALS: BP 128/74
[2018-04-01 04:00] VITALS: BP 138/63
--- NOTE | 2018-04-01 04:53 | NUR ---
PT CARE ASSUMED AT 1930. SAT MAINTAINED IN 2L NC. ALERT AND ORIENTED X4. CALL LIGHT WITHIN REACH AND BED IN LOW POSITION. DENIES CHEST PAIN. SOB WITH EXERTION. VSS AND CHARTED. HOURLY ROUNDING DONE FOR PT SAFETY.
[2018-04-01 12:00] VITALS: BP 121/65
[2018-04-01 20:00] VITALS: BP 117/52; BP 150/69
[2018-04-02 00:03] VITALS: BP 119/49
[2018-04-02 04:35] VITALS: BP 126/70
--- NOTE | 2018-04-02 04:56 | NUR ---
Pt resting in bed. SR on monitor. AM labs to be reviewed. No c/o pain from pt. Pt hopes to d/c home today. Continues on 2L oxygen per NC.
[2018-04-02 05:22] LABS: HEMATOCRIT 41.2 % (42.0-52.0); HEMOGLOBIN 13.6 gm/dL (14.0-18.0); MCH 30.3 pg (26.0-34.0); MCV 91.7 fL (80.0-100.0); MPV 11.4 fl. (7.2-11.1); NUCLEATED RBCS 0 /100WBC; PLATELET COUNT* 148 thou/uL (150-400); RDW-CV 14.2 % (10.5-14.5); WBC 10.1 thou/uL (4.0-11.0)
[2018-04-02 05:28] LABS: CALCIUM 8.8 mg/dL (8.5-10.1); CREATININE 0.9 mg/dL (0.6-1.3); MAGNESIUM 2.1 mg/dL (1.8-2.4); POTASSIUM 4.5 mmol/L (3.5-5.1)
[2018-04-02 06:45] LABS: ABSOLUTE LYMPHOCYTES 0.3 thou/uL (0.8-5.3); ABSOLUTE NEUTROPHILS 9.8 thou/uL (1.6-8.1); PLATELET ESTIMATE ADEQUATE
[2018-04-02 08:30] VITALS: BP 130/67
--- NOTE | 2018-04-02 08:30 | NUR ---
ASSUMED PT. CARE AND RECEIVED REPORT AT 0730. PT A/OX4, VSS, MONITOR ON TRACING SR. PT. ON 2L NC @ 100%. FULL ASSESSMENT COMPLETED, REFER TO CHARTING. PT. DENIES CURRENT PAIN, STATES HE IS AT HIS BASELINE FOR BREATHING. PT. SITTING ON BEDSIDE, EATING BREAKFAST AND TOLERATING WELL, AND WOULD LIKE TO DC HOME TODAY. CALL LIGHT IN REACH, WILL CONTINUE WITH PLAN OF CARE.
[2018-04-02 11:15] VITALS: BP 131/64
--- NOTE | 2018-04-02 12:49 | NUR ---
PT.SITTING ON SIDE OF BED, WAITING FOR LUMCH. HE WAS ALERT AND ORIENTED. STATED HE LIVES WITH A ROOMATE. HE HAS HOME O2 AND NEBULIZER AT HOME THROUGH [facility]. HE SAID HE ONLY WEARS OXYGEN IF HE NEEDS IT. HE SAID HE IS NORMALLY INDEPENDENT AT HOME. HE HOPES TO GO HOME TOMORROW. TOLD HIM THE WAY THE SOUND HE MIGHT NOT BE READY UNTIL WED. HE SAID IF HE WAS DISCHARGED TOMORROW, HE WOULD NOT HAVE ANYONE TO COME GET HIM. TOLD HIM WE COULD GET HIM A CAB WITH A VOUCHER AND HAVE [facility] DELIVER A PORTABLE TANK TO HIM HERE AT THE HOSPITAL ([phone]).
[2018-04-02 15:33] VITALS: BP 130/62
--- NOTE | 2018-04-02 19:06 | NUR ---
PT. STABLE THROUGH OUT SHIFT. UP IN ROOM AD ADAM, TOLERATING WELL ON 2LNC, WITH SOME NOTED SOB WITH ACTIVITY. PT. STATES HE FEELS THIS IS HIS NORM THOUGH. NO COMPLAINTS OF PAIN. ANTICIPATE DC ON MONDAY. PT. SISTER IN TO VISIT. HOURLY ROUNDING COMPLETED THROUGH OUT THE DAY FOR PT. SAFETY.
[2018-04-02 20:00] VITALS: BP 142/71
[2018-04-03] VITALS: BP 123/62; BP 123/70
--- NOTE | 2018-04-03 02:12 | NUR ---
ASSUMED PT CARE @ 1930. PT A+OX4. NORCO GOVEN FOR CHRONIC NECK AND BACK PAIN. EFFECTIVE. PT C/O DRY NOSE W SORE. RT NOTIFIED. ATTACHED HUMIDIFIED BUBBLER ATTACHED TO O2. PT HAD WHEEZING AFTER RT TX- REPORTED THAT WAS HIS BASELINE. NO OBVIOUS RESPIRATORY DISTRESS. PT IS RESTING WITHOUT ANY PAIN OR DISCOMFORT REPORTED OR OBSERVED AT THIS TIME. CALL LIGHT IN REACH. SR WITH PACS AND PVS TRACING ON MONITOR.HOURLY ROUNDING FOR SAFETY.
[2018-04-03 04:00] VITALS: BP 132/69
[2018-04-03 10:16] LABS: BE 0.6 mmol/L (-2 to +3); HCO3 25.1 mmol/L (22.0-26.0); PCO2 39.8 mmHg (35.0-45.0); PO2 73.9 mmHg (75.0-100.0); pH 7.417 (7.340-7.450)
[2018-04-03 11:52] VITALS: BP 95/57
[2018-04-03 16:00] VITALS: BP 142/75
--- NOTE | 2018-04-03 16:09 | NUR ---
PATIENT RESTING IN CHAIR IN ROOM. HEART RHYTHM WAS 170-180 WITH AFIB RVR THIS AM, CARDIZEM GTT WAS TIRATED AND BOLUS GIVEN WITH LITTLE TO NO RATE CONTROL, ORDERS RECEIVED TO CHANGE TO 2 BOLUSES OF AMIODARONE AND THEM BEGIN CONTINUED INFUSION FOR RATE CONTROL WITH RATES CURRENTLY 76 BPM. BLOOD PRESSURE STABLE NAD PATIENT IN NOP APPARENT SIGNS OF DISTRESS. HOURY ROUNDING COMPLETD FOR PATIENT SAFETY.
[2018-04-04 00:04] VITALS: BP 141/68
--- NOTE | 2018-04-04 03:20 | NUR ---
RECIEVED REPORT AND ASSUMED CARE AT 1900. LOCOMOTIVE ELECTRICIAN IN PLACE. SYSTOLIC BP SLIGHTLY ELEVATED AND DISTOLIC SLIGHTLY LOW, OTHER THAN THAT VITAL SIGNS STABLE. PT DENIES ANY PAIN AT THIS TIME. HE STATED HE HAD NOT HAD A BOWEL MOVEMENT IN A FEW DAYS AND WANTED SOMETHING TO HELP, PRN MEDS GIVEN TO HELP PROMOTE BOWEL MOVEMENT. ASSESSMENT COMPLETED AND DISCUSSED PLAN OF CARE, PT UNDERSTANDS. BED LOCKED, AND CALL LIGHT WITHIN REACH. FALL PRECAUITIONS IN PLACE. HOURLY ROUNDING DONE AND ALL NEEDS MET. WILL CONTINUE TO MONITOR.
[2018-04-04 04:37] VITALS: BP 139/90
[2018-04-04 05:47] LABS: HEMATOCRIT 39.2 % (42.0-52.0); HEMOGLOBIN 12.8 gm/dL (14.0-18.0); MCH 29.9 pg (26.0-34.0); MCHC 32.8 g/dL (28.0-37.0); MCV 91.2 fL (80.0-100.0); MPV 11.4 fl. (7.2-11.1); NUCLEATED RBCS 0 /100WBC; PLATELET COUNT* 130 thou/uL (150-400); RBC 4.29 mil/uL (4.50-6.00); RDW-CV 13.9 % (10.5-14.5)
[2018-04-04 05:56] LABS: CALCIUM 8.6 mg/dL (8.5-10.1); POTASSIUM 4.1 mmol/L (3.5-5.1)
[2018-04-04 08:00] VITALS: BP 168/60
[2018-04-04 08:13] LABS: ABSOLUTE LYMPHOCYTES 0.2 thou/uL (0.8-5.3); ABSOLUTE MONOCYTES 0.4 thou/uL (0.0-1.2); ABSOLUTE NEUTROPHILS 8.4 thou/uL (1.6-8.1); BASOPHILS 0.1 %; MONOCYTES 4.2 %; POLYS 93.7 %
--- NOTE | 2018-04-04 09:00 | CON ---
[address] [address] CONSULTATION Name: FISH STAPLES Room: [address] IN ..#: [id number] Admission: 03/30/18 Attend Phys: Nan Herron MD Discharge: Date of : 41 Report #: [id number] THIS REPORT FOR: //name// CC: Joseph Herron INDICATION: Atrial fibrillation with rapid ventricular response rate. HISTORY OF PRESENT ILLNESS: The patient is a 72-year-old white male who was admitted to the hospital with COPD exacerbation. He was found to be hypoxic in the Emergency Room and admitted to the hospital. He has shortness of breath, but no chest pain. While in hospital, he developed atrial fibrillation with a rapid ventricular response rate. He remains asymptomatic from a cardiac standpoint. He is not having chest pain. He denies palpitations. PAST MEDICAL HISTORY: 1. Non-ST elevation myocardial infarction based on enzymes x 2 in the past recently. Conservative management has been pursued. 2. Cardiomyopathy based on echocardiogram that appears to have been a stress-induced cardiomyopathy as he has had improvement in his left ventricular systolic function. 3. COPD, severe. 4. Bronchitis. 5. Coronary artery disease based on noninvasive study showing coronary calcification. 6. Remote history of smoking. 7. Tonsillectomy. 8. The patient reports cardiac catheterization 3 years ago with no intervention undertaken. FAMILY HISTORY: Positive for COPD and heart disease. SOCIAL HISTORY: The patient quit smoking over a year ago. He drinks alcohol occasionally. CURRENT MEDICATIONS: 1. Amiodarone bolus and drip. 2. Azithromycin. 3. Methylprednisolone. 4. Pepcid. 5. Guaifenesin. 6. Budesonide. 7. Combivent ____. 8. Promethazine p.r.n. 9. Zofran p.r.n. 10. Colace p.r.n. 11. Milk of [place]es[place] [address] CONSULTATION Name: JHOANFISH Meeta Room: [address]#: [id number] Admission: 03/30/18 Attend Phys: Nan Herron MD Discharge: Date of : 41 Report #: [id number] 12. Melatonin p.r.n. 13. Diphenhydramine p.r.n. 14. Tylenol p.r.n. ALLERGIES: None documented. RECENT REVIEW OF SYSTEMS: Noncontributory. PHYSICAL EXAMINATION: VITAL SIGNS: Stable. Blood pressure 95/57, pulse is in the 130s and irregular. GENERAL: This is a thin gentleman who is in no distress. Mood and affect appropriate. HEENT: Extraocular muscles intact. Mucous membranes moist. NECK: Shows no jugular venous distention. There are no carotid bruits. CHEST: Reveals diffusely decreased breath sounds throughout. CARDIAC: Reveals an irregularly irregular rhythm that is rapid without murmur or gallop. ABDOMEN: Reveals normal bowel sounds. The abdomen is soft, nontender. EXTREMITIES: Shows no edema. Peripheral pulses 2+ and palpable. LABORATORY DATA: EKG on admission shows a sinus rhythm with biatrial enlargement. Labs are reviewed. Troponin is less than 0.06. IMPRESSION AND RECOMMENDATION: 1. New onset atrial fibrillation with rapid ventricular response rate. The patient has received an amiodarone bolus and now amiodarone drip. I will re-bolus in an effort for improved rate control and give digoxin. 2. Mild hypotension likely due to arrhythmia. We will give fluid bolus as well as amiodarone drip. 3. Coronary artery disease, presently asymptomatic. Continue conservative management. 4. Chronic obstructive pulmonary disease. Per Pulmonology. <ELECTRONICALLY SIGNED> By: Fish Javier MD, FACC 04/04/18 0900 1201 [id number] Javier MD, FACC /nt
[2018-04-04 12:14] VITALS: BP 157/65
--- NOTE | 2018-04-04 15:21 | NUR ---
PT PROGRESSING TOWARDS GOALS THIS SHIFT. AMIODARONE GTT DC'D. PT REMAINS AFIB/AFLUTTER WITH CONTROLLED RATE. PT STARTED ON ORAL CARDIZEM AND PLAVIX. PT REPORTS SOME CONSTIPATION AND REPORTS HE HAS HAD A BM TODAY AND YESTERDAY. ORAL FLUIDS ENCOURAGED. REMAINS IN ISOLATION. VSS. NO OTHER CONCERNS AT THIS TIME. CLWR. WCTM.
[2018-04-04 15:48] VITALS: BP 162/49
[2018-04-04 20:00] VITALS: BP 155/64
[2018-04-05] VITALS: BP 162/94
[2018-04-05 04:00] VITALS: BP 164/66
--- NOTE | 2018-04-05 05:42 | NUR ---
PATIENT PROGRESSING TOWARDS GOALS: PATIENT REMAINS ON 2-3L O2 NC WITH SATS >92%, PATIENT WEARS CHRONICALLY AT HOME. PATIENT UP INDEPENDENTLY WITH STEADY GAIT. HOURLY ROUNDING OBSERVED. CALL LIGHT WITHIN REACH
[2018-04-05 08:00] VITALS: BP 146/69
--- NOTE | 2018-04-05 10:28 | NUR ---
ASSUMED CARE OF PT AROUND 0730 THIS AM. REFER TO ASSESSMENT. VSS. TELE APPEARS A-FLUTTER WITH CONTROLLED RATE. PT C/O ABDOMINAL CRAMPING/ CONSTIPATION. PT REPORTS HE HAD SMALL HARD BOWEL MOVEMENTS OVER THE LAST TWO DAYS. PT GIVEN ZOFRAN FOR NAUSEA PRIOR TO SHIFT CHANGE. NO OTHER CONCERNS AT THIS TIME. CLWR. WCTM.
[2018-04-05] MEDS ORDERED: CARDIZEM CD120 MG PO (11:50)
[2018-04-05] MEDS ORDERED: ATORVASTATIN CA20 MG PO (11:51)
[2018-04-05 11:54] VITALS: BP 123/56
[2018-04-05] MEDS ORDERED: PREDNISONE 10 M10 MG PO (11:54)
[2018-04-05] MEDS ORDERED: ASPIRIN EC325 M1 PO (11:56)
[2018-04-05] MEDS ORDERED: PROTONIX40 M1 PO (11:56)
[2018-04-05 12:39] LABS: AMP/METHAMP Negative (Negative); BARBITURATES Negative (Negative); BENZODIAZEPINES Negative (Negative); COCAINE Negative (Negative); METHADONE Negative (Negative); OPIATES POSITIVE (Negative); PCP Negative (Negative); THC Negative (Negative)
[2018-04-05 13:00] VITALS: BP 123/56
--- NOTE | 2018-04-05 15:45 | NUR ---
CM contacted Pt post dc to discuss HH orders, Pt declined HH at this time.
== END 2018-04-05 14:40 | disposition home or self-care (01) | DRG 871 ==
LOC: M.ERS 01:53 → M.2W 03:11 → M.TBA-ER 03:11 → M.2W 03:57 → M.ICU 12:44 → M.2W 03-31 00:01
PROVIDERS: Emergency Medicine; Internal Medicine; Internal Medicine Critical Care Medicine; Internal Medicine Pulmonary Disease; ADMIT Family Medicine
PROC: 5A09357 Assistance with Respiratory Ventilation, Less than 24 Consecutive Hours, Continuous Positive Airway Pressure (ICD-10-PCS; principal; 2018-03-30)
DX: A41.9 Sepsis, unspecified organism (principal); J15.9 Unspecified bacterial pneumonia; N17.0 Acute kidney failure with tubular necrosis; J96.22 Acute and chronic respiratory failure with hypercapnia; J96.21 Acute and chronic respiratory failure with hypoxia; J44.1 Chronic obstructive pulmonary disease with (acute) exacerbation; J44.0 Chronic obstructive pulmonary disease with (acute) lower respiratory infection; J20.9 Acute bronchitis, unspecified; I48.91 Unspecified atrial fibrillation; I95.9 Hypotension, unspecified; G89.29 Other chronic pain; J45.909 Unspecified asthma, uncomplicated; E78.5 Hyperlipidemia, unspecified; I25.5 Ischemic cardiomyopathy; I25.10 Atherosclerotic heart disease of native coronary artery without angina pectoris; Z82.49 Family history of ischemic heart disease and other diseases of the circulatory system; Z87.891 Personal history of nicotine dependence; Z99.81 Dependence on supplemental oxygen; I25.2 Old myocardial infarction; Z83.6 Family history of other diseases of the respiratory system; Z79.52 Long term (current) use of systemic steroids